=== PATIENT | female | born 1980 | race African-American/Black ===

== ENCOUNTER 2020-02-07 05:38 | Inpatient (IN) | payer OTHER ==
[~2020-02-07] VITALS: Ht 157.5 cm; Wt 63.1 kg
[~2020-02-07 05:38] MED LIST: IBUP-1222 PO; OXYC-302 PO; PREN1TAB79 PO
[2020-02-07] MEDS ORDERED: LACTATED RINGERS 1,000 ML IV SCH (05:41)
[2020-02-07 05:48] VITALS: BP 107/59
[2020-02-07] MEDS ORDERED: ASPI-515 PO (05:58)
[2020-02-07] MEDS ORDERED: NEWBORN KIT ONE ×2 (05:59→07:21)
[2020-02-07] MEDS ORDERED: LACTATED RINGERS 1,000 ML IVBOLUS ONE (06:00)
[2020-02-07] MEDS ORDERED: SODIUM CITRATE/CITRIC ACID 30 ML UDC PO ONE (06:00)
[2020-02-07] MEDS ORDERED: METOCLOPRAMIDE 5 MG/ML, 2ML IV ONE (06:00)
[2020-02-07] MEDS ORDERED: SODIUM CITRATE/CITRIC ACID 30 ML UDC ONE (06:00)
[2020-02-07] MEDS ORDERED: METOCLOPRAMIDE 5 MG/ML, 2ML ONE (06:00)
[2020-02-07] MEDS ORDERED: OXYTOCIN 30U/ 0.9% NaCL 500ML 500 ML ONE (06:40)
[2020-02-07 06:59] LABS: BASOPHILS # (AUTO) 0.03 x10^3/uL (0-0.1); BASOPHILS % (AUTO) 0 % (0-1); EOSINOPHILS # (AUTO) 0.04 x10^3/uL (0-0.4); EOSINOPHILS % (AUTO) 1 % (1-7); LYMPHOCYTES # (AUTO) 1.64 x10^3/uL (1-3.4); LYMPHOCYTES % (AUTO) 20 % (22-44); MD NO; MEAN CORPUSCULAR HEMOGLOBIN 23.5 pg (27.0-34.8); MEAN CORPUSCULAR HGB CONC 31.8 g/dL (32.4-35.8); MEAN CORPUSCULAR VOLUME 73.8 fL (80-100); MEAN PLATELET VOLUME 10.8 fL (7.4-10.4); MONOCYTES # (AUTO) 0.71 x10^3/uL (0.2-0.8); MONOCYTES % (AUTO) 9 % (2-9); NEUTROPHILS # (AUTO) 5.97 x10^3/uL (1.8-6.8); NEUTROPHILS % (AUTO) 71 % (42-75); PLATELET COUNT 192 x10^3/uL (130-400); RED BLOOD COUNT 4.96 x10^6/uL (3.82-5.3); RED CELL DISTRIBUTION WIDTH 16.3 % (9.6-15.2)
[2020-02-07] MEDS ORDERED: DEXAMETHASONE 4 MG/ML, 1ML ONE (07:06)
[2020-02-07] MEDS ORDERED: CEFAZOLIN 1,000 MG ONE (07:06)
[2020-02-07] MEDS ORDERED: EPHEDRINE 50 MG/ML, 1ML ONE (07:06)
[2020-02-07] MEDS ORDERED: KETOROLAC 30 MG/1 ML ONE (07:06)
[2020-02-07] MEDS ORDERED: OXYTOCIN 10 UNITS/ML, 1ML ONE (07:06)
[2020-02-07] MEDS ORDERED: ONDANSETRON 2MG/ML, 2ML ONE (07:06)
[2020-02-07] MEDS ORDERED: PHENYLEPHRINE 10 MG/ML ONE (07:06)
[2020-02-07] MEDS ORDERED: FENTANYL PF 100 MCG/2ML ONE (07:07)
[2020-02-07] MEDS ORDERED: LABETALOL 5MG/ML, 20ML IV PRN (07:30)
[2020-02-07] MEDS ORDERED: hydrALAzine 20 MG/ML, 1ML IV PRN (07:30)
[2020-02-07] MEDS ORDERED: HYDROmorphone 2 MG/ML, 1ML IVPush PRN (07:30)
[2020-02-07] MEDS ORDERED: EPHEDRINE 50 MG/ML, 1ML IVPush PRN (07:30)
[2020-02-07] MEDS ORDERED: FENTANYL PF 100 MCG/2ML IV PRN (07:30)
[2020-02-07] MEDS ORDERED: ONDANSETRON 2MG/ML, 2ML IVPush PRN (07:30)
[2020-02-07] MEDS ORDERED: MEPERIDINE/PF 25MG/0.5ML IVPush PRN (07:30)
[2020-02-07] MEDS ORDERED: PROMETHAZINE 25 MG/ML, 1ML IV PRN (07:30)
[2020-02-07] MEDS ORDERED: OXYcodone 5 MG/5 ML ORAL.SOL UDC PO PRN (07:30)
[2020-02-07] MEDS ORDERED: MIDAZOLAM 1 MG/ML, 2ML IV PRN (07:30)
[2020-02-07] MEDS ORDERED: HYDROcodone/APAP 7.5-325MG/15ML UDC PO PRN (07:30)
[2020-02-07] MEDS ORDERED: ALBUTEROL SULFATE 2.5 MG/3 ML NPPB PRN (07:30)
[2020-02-07] MEDS ORDERED: METOPROLOL 1 MG/ML, 5ML IV PRN (07:30)
[2020-02-07] MEDS ORDERED: HYDROmorphone 2 MG/ML, 1ML ONE (08:13)
[2020-02-07] MEDS ORDERED: morphine SULFATE 10 MG/ML, 1ML IV PRN (09:30)
[2020-02-07] MEDS ORDERED: ONDANSETRON 2MG/ML, 2ML IV PRN (09:30)
[2020-02-07] MEDS ORDERED: SIMETHICONE 80 MG CHEW TAB PO PRN (09:30)
[2020-02-07] MEDS ORDERED: morphine SULFATE 10 MG/ML, 1ML IVPush PRN (09:30)
[2020-02-07] MEDS ORDERED: MISOPROSTOL 200 MCG TABLET PR PRN (09:30)
[2020-02-07] MEDS: PRENATAL VIT/IRON/FA 1 EACH TABLET PO SCH (09:30)
[2020-02-07] MEDS: LACTATED RINGERS 1,000 ML IV SCH ×4 (10:00→20:25)
[2020-02-07] MEDS: OXYTOCIN 30U/ 0.9% NaCL 500ML 500 ML IV SCH ×2 (10:02→20:25)
[2020-02-07 12:00] VITALS: BP 110/68
[2020-02-07] MEDS: OXYcodone/APAP 5/325MG TABLET PO PRN ×3 (12:23→20:23)
[2020-02-07 14:00] VITALS: BP 120/52
[2020-02-07] MEDS: KETOROLAC 30 MG/1 ML IV SCH ×2 (14:30→20:22)
[2020-02-07 18:18] VITALS: BP 105/82
[2020-02-07 19:02] LABS: BASOPHILS # (AUTO) 0.01 x10^3/uL (0-0.1); BASOPHILS % (AUTO) 0 % (0-1); EOSINOPHILS % (AUTO) 0 % (1-7); LYMPHOCYTES # (AUTO) 0.96 x10^3/uL (1-3.4); LYMPHOCYTES % (AUTO) 8 % (22-44); MD NO; MEAN CORPUSCULAR HEMOGLOBIN 23.5 pg (27.0-34.8); MEAN CORPUSCULAR HGB CONC 31.7 g/dL (32.4-35.8); MEAN PLATELET VOLUME 10.6 fL (7.4-10.4); MONOCYTES # (AUTO) 0.98 x10^3/uL (0.2-0.8); MONOCYTES % (AUTO) 8 % (2-9); NEUTROPHILS # (AUTO) 10.62 x10^3/uL (1.8-6.8); NEUTROPHILS % (AUTO) 85 % (42-75); PLATELET COUNT 156 x10^3/uL (130-400); RED BLOOD COUNT 4.34 x10^6/uL (3.82-5.3); RED CELL DISTRIBUTION WIDTH 15.8 % (9.6-15.2)
[2020-02-07] MEDS: DOCUSATE 100 MG CAPSULE PO PRN (20:23)
[2020-02-07 20:25] VITALS: BP 119/68
[2020-02-07 23:40] VITALS: BP 112/72
[2020-02-08] MEDS: OXYcodone/APAP 5/325MG TABLET PO PRN ×7 (00:34→23:36)
[2020-02-08] MEDS: LACTATED RINGERS 1,000 ML IV SCH ×5 (02:00→18:00)
[2020-02-08] MEDS: KETOROLAC 30 MG/1 ML IV SCH ×2 (02:16→08:03)
[2020-02-08 05:23] VITALS: BP 79/43
[2020-02-08] MEDS: OXYTOCIN 30U/ 0.9% NaCL 500ML 500 ML IV SCH ×2 (06:00→16:00)
[2020-02-08 07:05] VITALS: BP 86/54
[2020-02-08] MEDS ORDERED: LACTATED RINGERS 500 ML IVBOLUS ONE (07:48)
[2020-02-08] MEDS: DOCUSATE 100 MG CAPSULE PO PRN ×2 (08:03→20:38)
[2020-02-08] MEDS: PRENATAL VIT/IRON/FA 1 EACH TABLET PO SCH (08:03)
[2020-02-08 10:13] VITALS: BP 99/64
[2020-02-08] MEDS: IBUPROFEN 600 MG TABLET PO PRN ×2 (15:01→20:38)
[2020-02-08 20:25] VITALS: BP 99/62
[2020-02-09] MEDS: OXYTOCIN 30U/ 0.9% NaCL 500ML 500 ML IV SCH (02:00)
[2020-02-09] MEDS: LACTATED RINGERS 1,000 ML IV SCH ×2 (02:00)
[2020-02-09] MEDS: IBUPROFEN 600 MG TABLET PO PRN ×2 (02:34→08:24)
[2020-02-09] MEDS: OXYcodone/APAP 5/325MG TABLET PO PRN ×2 (03:36→08:23)
[2020-02-09 03:37] VITALS: BP 103/62
[2020-02-09] MEDS: PRENATAL VIT/IRON/FA 1 EACH TABLET PO SCH (08:20)
[2020-02-09] MEDS: DOCUSATE 100 MG CAPSULE PO PRN (08:22)
[2020-02-09 08:55] VITALS: BP 119/67
[2020-02-09] MEDS ORDERED: FERR324T5 PO (09:32)
[2020-02-09] MEDS ORDERED: DOCU-131 PO (09:32)
[2020-02-09] MEDS ORDERED: OXYC-302 PO (09:32)
[2020-02-09] MEDS ORDERED: IBUP-1222 PO (09:32)
== END 2020-02-09 10:35 | disposition home or self-care (01) | DRG 788 ==
LOC: LDIP 05:38 → 2NW 11:03
PROVIDERS: ADMIT Obstetrics & Gynecology; ATTEND Obstetrics & Gynecology
PROC: 10D00Z1 Extraction of Products of Conception, Low, Open Approach (ICD-10-PCS; principal; 2020-02-07)
DX: O34.211 Maternal care for low transverse scar from previous cesarean delivery (principal); D56.3 Thalassemia minor; O69.81X0 Labor and delivery complicated by cord around neck, without compression, not applicable or unspecified; O77.0 Labor and delivery complicated by meconium in amniotic fluid; Z20.828 Contact with and (suspected) exposure to other viral communicable diseases; Z37.0 Single live birth; Z3A.39 39 weeks gestation of pregnancy; Z82.49 Family history of ischemic heart disease and other diseases of the circulatory system; Z83.3 Family history of diabetes mellitus
CPT/HCPCS: 36415; 85025; 86592; 86850; 86900; 87635; G0378; J0690; J1100; J1170; J1885; J2405; J3010; J7120; J2370; J2590; J2765